=== PATIENT | female | born 1965 | race Caucasian/White ===

== ENCOUNTER 2018-02-21 20:26 | Inpatient (IN) | payer BC ==
[~2018-02-21] VITALS: Ht 165.1 cm; Wt 119.0 kg
[2018-02-21] MEDS ORDERED: ALPR0.5T8 PO (21:08)
[2018-02-21] MEDS ORDERED: HYDR8TAB2 PO (21:08)
[2018-02-21 21:12] LABS: BASOPHILS % (AUTO) 1.4 % (0.0-2.0); EOSINOPHILS % (AUTO) 2.4 % (1.0-6.0); HEMATOCRIT 34.3 % (36-46); HEMOGLOBIN 11.5 g/dL (12.0-16.0); LYMPHOCYTES # (AUTO) 1.7 K/uL (1.0-4.8); LYMPHOCYTES % (AUTO) 28.9 % (22.0-44.0); MEAN CORPUSCULAR HGB CONC 33.6 G/dL (31.0-37.0); MEAN CORPUSCULAR VOLUME 81 fL (80-100); MONOCYTES # (AUTO) 0.4 K/uL (0.1-1.0); MONOCYTES % (AUTO) 6.8 % (2.0-9.0); NEUTROPHILS # (AUTO) 3.5 K/uL (1.8-7.7); NEUTROPHILS % (AUTO) 60.5 % (40.0-70.0); PLATELET COUNT (AUTO) 210 K/uL (150-450); RED BLOOD CELL COUNT(AUTO) 4.26 MIL/uL (4.00-5.20); RED CELL DISTRIBUTION WIDTH 14.6 % (11.5-14.5)
[2018-02-21 21:16] LABS: ANION GAP 5 mmol/L (8-16); CALCIUM, TOTAL 8.2 mg/dL (8.8-10.5); CARBON DIOXIDE 30 mmol/L (22-29); CHLORIDE 104 mmol/L (98-107); CREATININE 1.05 mg/dL (0.60-1.30); GLOMERULAR FILTR. RATE CALC 55 mL/min (>60); GLUCOSE,RANDOM 76 mg/dL (70-110); SODIUM SERUM 139 mmol/L (136-145); UREA NITROGEN, BLOOD 12 mg/dL (7-18)
[2018-02-21 21:21] LABS: ACETAMINOPHEN < 2 mcg/mL (10-30); ALANINE AMINOTRANSFERASE 53 U/L (12-78); ALBUMIN 3.4 g/dL (3.4-5.0); ALKALINE PHOSPHATASE 126 U/L (46-116); ASPARTATE AMINOTRANSFERASE 51 U/L (15-37); BILIRUBIN,TOTAL 0.3 mg/dL (0.1-1.0); TOTAL PROTEIN, SERUM 6.7 g/dL (6.4-8.2)
[2018-02-21 21:23] LABS: SALICYLATE < 2.8 mg/dL (2.8-20.0)
[2018-02-22] VITALS (9 sets, daily range): BP systolic 102–117; BP diastolic 62–71
[2018-02-22] MEDS ORDERED: SODIUM CHLORIDE 0.9% 1,000 ML IV ONE ×2 (00:09→00:45)
[2018-02-22] MEDS ORDERED: NALOXONE HCL 1 MG/ML 2 ML SYG ONE (00:09)
[2018-02-22] MEDS ORDERED: NALOXONE HCL 1 MG/ML 2 ML SYG IVP ONE (00:45)
[2018-02-22 02:05] LABS: AMPHET/METH SCREEN,URINE NEGATIVE (NEGATIVE); BARBITURATE SCREEN, URINE NEGATIVE (NEGATIVE); BENZODIAZEPINES SCREEN,URINE POSITIVE (NEGATIVE); CANNABINOID SCREEN,URINE NEGATIVE (NEGATIVE); COCAINE SCREEN,URINE NEGATIVE (NEGATIVE); METHADONE SCREEN, URINE NEGATIVE (NEGATIVE); OPIATE SCREEN,URINE POSITIVE (NEGATIVE)
[2018-02-22 02:06] LABS: PHENCYCLIDINE SCREEN,URINE NEGATIVE (NEGATIVE)
[2018-02-22] MEDS ORDERED: ACETAMINOPHEN 325 MG TABLET PO PRN ×2 (06:30→11:30)
[2018-02-22] MEDS ORDERED: LORazepam 2 MG TABLET PO PRN (06:30)
[2018-02-22] MEDS ORDERED: HALOPERIDOL 5 MG TABLET PO PRN (06:30)
[2018-02-22] MEDS ORDERED: MAG HYDROX/AL HYDROX/SIMETH ES 30 ML SUSPENSION UDCUP PO PRN (06:30)
[2018-02-22] MEDS ORDERED: MAGNESIUM HYDROXIDE SUSPENSION 30 ML UDCUP PO PRN (06:30)
[2018-02-22 10:39] LABS: APPEARANCE,URINE CLEAR (CLEAR); BILIRUBIN,URINE NEGATIVE (NEGATIVE); GLUCOSE, URINE (UA) NEGATIVE (NEGATIVE); KETONES,URINE NEGATIVE (NEGATIVE); LEUKOCYTE ESTERASE ,URINE TRACE (NEGATIVE); NITRATE,URINE NEGATIVE (NEGATIVE); OCCULT BLOOD,URINE NEGATIVE (NEGATIVE); PROTEIN,URINE NEGATIVE (NEGATIVE); UROBILINOGEN,URINE 0.2 mg/dL (<=1.0)
[2018-02-22] MEDS ORDERED: IBUPROFEN 400 MG TABLET PO PRN (11:30)
[2018-02-22 13:05] LABS: RBC,URINE None Seen /HPF (0-2); WBC,URINE 0-2 /HPF (0-5)
[2018-02-22 13:06] LABS: BACTERIA,URINE Rare /HPF (None Seen); SQUAMOUS EPITHELIAL CELL,UR Few /LPF (None Seen)
[2018-02-23 00:42] VITALS: BP 110/80
[2018-02-23 01:23] VITALS: BP 114/75
[2018-02-23 08:09] VITALS: BP 115/68
[2018-02-23 09:05] LABS: CHOL/HDL RATIO 3.1 (3.9-5.7); FREE T4 (FREE THYROXINE) 0.75 ng/dL (0.76-1.46); THYROID STIMULATING HORMONE 4.9 uIU/mL (0.36-3.74)
[2018-02-23] MEDS: CELECOXIB 200 MG CAPSULE PO SCH (12:57)
[2018-02-23 14:04] VITALS: BP 115/68
[2018-02-23 15:00] VITALS: BP 114/68
[2018-02-23 16:00] VITALS: BP_SYST 102; BP_SYST 112; BP_DIAS 71
[2018-02-23] MEDS: LIOTHYRONINE SODIUM 5 MCG TABLET PO SCH (16:30)
[2018-02-23] MEDS: LORazepam 2 MG TABLET PO SCH (16:31)
[2018-02-23] MEDS: QUEtiapine FUMARATE 25 MG TABLET PO SCH (16:31)
[2018-02-23] MEDS: ZOLPIDEM TARTRATE 10 MG TABLET PO PRN (22:00)
[2018-02-24] VITALS (9 sets, daily range): BP systolic 105–116; BP diastolic 60–76
[2018-02-24] MEDS: LEVOTHYROXINE SODIUM 100 MCG TABLET PO SCH (06:06)
[2018-02-24] MEDS: LIOTHYRONINE SODIUM 5 MCG TABLET PO SCH ×2 (06:07→16:21)
[2018-02-24] MEDS ORDERED: LORazepam 2 MG TABLET PO PRN (07:00)
[2018-02-24] MEDS ORDERED: LEVOTHYROXINE SODIUM 50 MCG TABLET PO SCH (07:30)
[2018-02-24] MEDS: LORazepam 2 MG TABLET PO SCH (09:40)
[2018-02-24] MEDS: QUEtiapine FUMARATE 25 MG TABLET PO SCH ×3 (09:40→16:21)
[2018-02-24] MEDS: ESCITALOPRAM OXALATE 20 MG TABLET PO SCH (09:40)
[2018-02-24] MEDS: CELECOXIB 200 MG CAPSULE PO SCH (09:43)
[2018-02-24] MEDS: LORazepam 1 MG TABLET PO SCH (16:21)
[2018-02-24] MEDS: ZOLPIDEM TARTRATE 10 MG TABLET PO PRN (21:54)
[2018-02-25] VITALS: BP 112/66
[2018-02-25 02:49] VITALS: BP 112/60
[2018-02-25] MEDS: LIOTHYRONINE SODIUM 5 MCG TABLET PO SCH (07:01)
[2018-02-25] MEDS: LEVOTHYROXINE SODIUM 100 MCG TABLET PO SCH (07:06)
[2018-02-25 08:07] VITALS: BP 115/72
[2018-02-25 08:08] VITALS: BP 115/86
[2018-02-25] MEDS: QUEtiapine FUMARATE 25 MG TABLET PO SCH ×2 (09:48→12:44)
[2018-02-25] MEDS: LORazepam 1 MG TABLET PO SCH (09:48)
[2018-02-25] MEDS: CELECOXIB 200 MG CAPSULE PO SCH (09:48)
[2018-02-25] MEDS: ESCITALOPRAM OXALATE 20 MG TABLET PO SCH (09:48)
[2018-02-25] MEDS ORDERED: LIOT5 PO (13:17)
[2018-02-25] MEDS ORDERED: CELE50CA PO (13:17)
[2018-02-25] MEDS ORDERED: QUET25TA PO (13:17)
[2018-02-25] MEDS ORDERED: LEVO100 PO (13:17)
[2018-02-25] MEDS ORDERED: ESCI20TA PO (13:17)
[2018-02-25] MEDS ORDERED: NICOTINE 21 MG/24 HOUR PATCH TD SCH (13:45)
[2018-02-26] MEDS ORDERED: LORazepam 1 MG TABLET PO PRN (07:00)
[2018-02-26] MEDS ORDERED: LORazepam 1 MG TABLET PO SCH (09:00)
== END 2018-02-25 16:20 | disposition home or self-care (01) | DRG 885 ==
LOC: EMS 20:27 → AHU 02-22 09:10 → B2S 02-22 13:15
PROVIDERS: ADMIT Psychiatry & Neurology Psychiatry; ATTEND Psychiatry & Neurology Psychiatry
DX: F33.2 Major depressive disorder, recurrent severe without psychotic features (principal); R45.851 Suicidal ideations; D64.9 Anemia, unspecified; E03.9 Hypothyroidism, unspecified; T40.2X2A Poisoning by other opioids, intentional self-harm, initial encounter; T42.4X2A Poisoning by benzodiazepines, intentional self-harm, initial encounter; F19.10 Other psychoactive substance abuse, uncomplicated; F99 Mental disorder, not otherwise specified; M19.90 Unspecified osteoarthritis, unspecified site; Z98.84 Bariatric surgery status; Z79.899 Other long term (current) drug therapy; Z71.51 Drug abuse counseling and surveillance of drug abuser
CPT/HCPCS: 84439; 84443; 93005; 96361; 96374; 99285; G0480; G0481; J2310; J7030